=== PATIENT | female | born 1985 | race Caucasian/White ===

== ENCOUNTER 2016-08-28 18:42 | Emergency (ER) | payer OTHER ==
[~2016-08-28] VITALS: Ht 160 cm; Wt 59.9 kg
[~2016-08-28 18:42] MED LIST: ACID CONTROL150 MG PO; CARAFATE100 MG/ML PO; KEFLEX500 MG PO; MOTRIN IB200 MG PO; PHENERGAN25 MG PR; PROMETHAZINE HC25 M1 PO; RANITIDINE HCL150 M1 PO; ZOFRAN ODT4 MG PO
[2016-08-28 19:46] LABS: ADD MIUA? YES; BILIRUBIN NEGATIVE; BLOOD NEGATIVE; COLOR YELLOW ((YELLOW)); GLUCOSE (STRIP) NEGATIVE; KETONES NEGATIVE; LEUKOCYTES NEGATIVE; NITRITE NEGATIVE; PROTEIN (STRIP) NEGATIVE; SPECIFIC GRAVITY 1.017 (1.000-1.030); UROBILINOGEN 0.2 MG/DL (0.2-1.0)
[2016-08-28 19:50] LABS: HEMATOCRIT 45.4 % (36.0-46.0); MCH 30.2 PG (29.0-34.0); MCHC 33.9 G/DL (30.0-36.0); MEAN PLAT.VOLUME 10.7 uM^3 (9.5-12.4); PLATELET COUNT 310 K/uL (156-360); RBC DIS.WIDTH-CV 12.5 % (11.8-14.6); RBC DIS.WIDTH-SD 41.2 % (39-53)
[2016-08-28 20:02] LABS: BACTERIA 4+ /HPF; CASTS NONE SEEN /LPF; EPITHELIAL CELLS 2+ /HPF; MUCUS NONE SEEN /LPF; RED BLOOD CELLS NONE SEEN /HPF (0-5); UCUL ADDED? YES; WHITE BLOOD CELLS 0-5 /HPF (0-5)
[2016-08-28 20:02] LABS: CHLORIDE 108 mEq/L (99-109); POTASSIUM 4.1 mEq/L (3.7-5.4); SODIUM 144 mEq/L (136-147)
[2016-08-28 20:04] LABS: GLUCOSE 92 mg/dL (70-99)
[2016-08-28 20:06] LABS: ANION GAP 12 MEQ/L (2-14)
[2016-08-28 20:08] LABS: GFR ESTIMATE (CALCULATED) > 59 mL/min/
[2016-08-28 20:09] LABS: UREA NITROGEN (BUN) 15 mg/dL (9-23)
[2016-08-28 20:20] LABS: QUANTITATIVE HCG < 4.0 MIU/ML
[2016-08-28 23:45] VITALS: BP 102/53
== END 2016-08-28 23:46 | disposition home or self-care (01) ==
LOC: EME 18:42
DX: K59.00 Constipation, unspecified (principal); R10.9 Unspecified abdominal pain; F32.9 Major depressive disorder, single episode, unspecified; F17.200 Nicotine dependence, unspecified, uncomplicated; Z87.442 Personal history of urinary calculi
CPT/HCPCS: 74176; 80048; 81003; 84702; 85027; 87086; 99281; 99284; J1885; J2270; J2405; J7030